=== PATIENT | male | born 1970 | race Caucasian/White ===

== ENCOUNTER 2020-09-30 08:36 | Emergency (ER) | payer MEDICAID ==
[2020-09-30 08:58] VITALS: BP 152/92
--- NOTE | 2020-09-30 09:10 | ED Physician Documentation ---
PD HPI OPHTHO - Stated complaint Stated Complaint: LT EYE INJ - Chief complaint Chief Complaint: Heent - History obtained from History obtained from: Patient - Additional information Additional information: 50-year-old male presents with eye pain and discharge after working outdoors and momentarily taking off his safety glasses and stabbing himself in the eye with a stick yesterday. This morning he woke up with moderate pain to the left eye where he injured himself associated with copious whitish discharge. Pain is constant, aching, worse with bright light. No other injuries. Review of Systems Ears: reports: Ear pain, Drainage/discharge PD PAST MEDICAL HISTORY - Present Medications Home Medications: Ambulatory Orders Medication Instructions Recorded Confirmed Ofloxacin 0.3% Ophth Drops 2 drops OPTH Q4H #5 ml 09/30/20 [Ocuflox 0.3% Ophth Drops] - Allergies Allergies/Adverse Reactions: Allergies Allergy/AdvReac Type Severity Reaction Status Date / Time No Known Drug Allergies Allergy Verified 09/30/20 08:59 - Social History Does the pt smoke?: Yes Smoking Status: Current every day smoker Does the pt drink ETOH?: No Does the pt have substance abuse?: No - Immunizations Immunizations are current?: Yes PD ED PE NORMAL - Vitals Vital signs reviewed: Yes - General General: Alert and oriented X 3, No acute distress, Well developed/nourished - HEENT HEENT: Atraumatic, PERRL, EOMI, Other (Left eye with mild conjunctival injection. Fluorescein test with increased uptake to the center of the eye with 3 mm diameter abrasion detected as well as 1 mm diameter abrasion just above that. no foreign body) Results - Vitals Vitals: Vital Signs - 24 hr 09/30/20 08:48 Temperature 37.0 C Heart Rate 81 Respiratory 16 Rate Blood Pressure 152/92 H O2 Saturation 96 Oxygen O2 Source Room air PD MEDICAL DECISION MAKING - ED course ED course: 50-year-old man presents with corneal abrasion after spoke himself in the eye with a stick yesterday. Antibiotic eyedrops prescribed. Return precautions given. He will follow up with his primary doctor. Departure - Departure Disposition: 01 Home, Self Care Clinical Impression: Corneal abrasion Condition: Good Instructions: ED Eye Injury Corneal Abrasion Prescriptions: Ofloxacin 0.3% Ophth Drops [Ocuflox 0.3% Ophth Drops] 2 drops OPTH Q4H #5 ml Comments: You are seen in the emergency department for corneal abrasion, scratch on your eye. Make sure that you use your antibiotic eyedrops as prescribed and return to the emergency department if you have any new or worsening symptoms or other concerns. Follow-up with your primary doctor
== END 2020-09-30 09:28 | disposition home or self-care (01) ==
LOC: ED 08:36
DX: S05.02XA Injury of conjunctiva and corneal abrasion without foreign body, left eye, initial encounter (principal); W22.8XXA Striking against or struck by other objects, initial encounter; Y93.H2 Activity, gardening and landscaping; F17.200 Nicotine dependence, unspecified, uncomplicated
CPT/HCPCS: 99282; 99283